=== PATIENT | female | born 1945 | race Caucasian/White ===

== ENCOUNTER 2020-03-08 12:32 | Inpatient (IN) ==
[2020-03-08] MEDS ORDERED: 0.9 % Sodium Chloride 1,000 ML IVC ONE (12:46)
[2020-03-08] MEDS ORDERED: DilTIAZem 50 MG in 0.9 % Sodium Chloride 40 ML IVC SCH (13:00)
[2020-03-08 13:17] LABS: Basophils % 0.1 %; Eosinophils % 0.1 %; Hematocrit 43.5 % (35.3-44.9); Immature Granulocytes % 0.8 % (0-4); Lymphocytes # 0.9 K/mcL (0.6-4.6); Lymphocytes % 5.2 %; Mean Corpuscular HGB Conc 29.9 g/dL (31.6-35.5); Mean Corpuscular Hemoglobin 27.3 pg (28.0-33.3); Mean Corpuscular Volume 91.4 fL (83.0-100.0); Mean Platelet Volume 11.2 fL (9.4-12.4); Monocytes # 1.3 K/mcL (0.0-1.3); Neutrophils # 15.8 K/mcL (1.6-8.9); Nucleated Red Blood Cells 0.2 /100 WBC (0); Platelet Count 336 K/mcL (140-400); Red Blood Count 4.76 M/mcL (3.82-4.97); Red Cell Distribution Width 17.2 % (11.5-14.5); Segmented Neutrophils % 86.8 %; White Blood Count 18.2 K/mcL (4.3-11.1)
[2020-03-08 13:20] LABS: VBG HCO3 31 mEq/L (21-27); VBG PCO2 62 mmHg (41-51); VBG PH 7.31 pH Units (7.32-7.42); VBG PO2 37 mmHg (25-50)
[2020-03-08 13:24] LABS: Activated Partial Thrombo Time 42.2 Seconds (26.0-36.0)
[2020-03-08] MEDS ORDERED: Amiodarone Premix 360 MG/200 ML BAG IVC ONE (13:25)
[2020-03-08] MEDS ORDERED: Amiodarone Premix 150 MG/100 ML BAG IVPB ONE (13:25)
[2020-03-08] MEDS ORDERED: 0.9 % Sodium Chloride 500 ML IVC ONE ×2 (13:30→15:33)
[2020-03-08 13:34] LABS: INR 7.6; Prothrombin Time 82.6 Seconds (9.4-12.1)
[2020-03-08] MEDS ORDERED: Piperacillin/Tazobactam 3.375 GM in 0.9 % Sodium Chloride Mini Bag 100 ML IVPB ONE (13:38)
[2020-03-08 13:43] LABS: Albumin 3.6 g/dL (3.5-5.7); Bilirubin,Direct 1.4 mg/dL (0.0-0.2); Bilirubin,Total 2.4 mg/dL (0.3-1.0); Calcium 9.1 mg/dL (8.6-10.3); Globulin 3.5 g/dL (2.4-3.5); Magnesium 3.3 mg/dL (1.6-2.6); Potassium 6.8 mEq/L (3.5-5.1); Total Protein 7.1 g/dL (6.4-8.9); Troponin I 0.06 ng/mL (< 0.04)
[2020-03-08] MEDS ORDERED: Albuterol 2.5 MG/3 ML NEBULIZER IH ONE (13:44)
[2020-03-08] MEDS ORDERED: Insulin Regular, Human 100 UNIT/ML SQ ONE (13:44)
[2020-03-08] MEDS ORDERED: *HR* Dextrose 50 % in Water (Vial) 50 ML VIAL IVP ONE (13:44)
[2020-03-08] MEDS ORDERED: Aspirin 81 MG TAB.CHEW PO ONE (13:45)
[2020-03-08] MEDS ORDERED: Vancomycin 1,500 MG/265 ML IV.SOLN IVPB ONE (13:45)
[2020-03-08] MEDS: Calcium Gluconate 1gm/50mL 1 GM/50 ML BAG IVPB SCH ×2 (14:16→15:46)
[2020-03-08 14:59] LABS: Adenovirus Not Detected (Not Detect); Bordetella Pertussis Not Detected (Not Detect); Chlamydophila pneumoniae Not Detected (Not Detect); Coronavirus 229E Not Detected (Not Detect); Coronavirus HKU1 Not Detected (Not Detect); Coronavirus NL63 Not Detected (Not Detect); Coronavirus OC43 Not Detected (Not Detect); Human Metapneumovirus Not Detected (Not Detect); Human Rhinovirus/Enterovirus Not Detected (Not Detect); Influenza A Subtype 2009 H1 Not Detected (Not Detect); Influenza B Not Detected (Not Detect); Mycoplasma pneumoniae Not Detected (Not Detect); Parainfluenza Virus 1 Not Detected (Not Detect); Parainfluenza Virus 2 Not Detected (Not Detect); Parainfluenza Virus 3 Not Detected (Not Detect); Parainfluenza Virus 4 Not Detected (Not Detect); Respiratory Syncytial Virus Not Detected (Not Detect); SARS-CoV-2 Not Detected (Not Detect)
[2020-03-08 15:10] LABS: Bacteria,Urine Few per hpf (None-Few); Bilirubin,Urine Small (Negative); Blood,Urine Negative (Negative); Clarity,Urine Turbid (Clear); Color,Urine Yellow (Yellow); Glucose,Urine (UA) Normal (Normal); Hyaline Casts,Urine Many per lpf (None Seen); Ketones,Urine Negative (Negative); Leukocyte Esterase,Urine Negative (Negative); Mucus,Urine Few per lpf (None-Few); Nitrite,Urine Negative (Negative); Protein,Urine 30 mg/dL (Neg-Trace); RBC,Urine 0-3 per hpf (0-3); Specific Gravity,Urine 1.022 (1.010-1.025); Squamous Epithelial Cell,Urine Moderate per hpf (None-Few)
[2020-03-08] MEDS ORDERED: Hydrocortisone Sodium Succ 100 MG/2 ML VIAL IVP ONE (16:08)
[2020-03-08] MEDS ORDERED: Naloxone 0.4 MG/ML INJ IVP PRN (16:55)
[2020-03-08] MEDS ORDERED: Acetaminophen 325 MG TABLET PO PRN (16:55)
[2020-03-08] MEDS ORDERED: Vancomycin (wt based) 1,000 MG VIAL IVPB SCH (17:00)
[2020-03-08] MEDS ORDERED: Albuterol 2.5 MG/3 ML NEBULIZER IH PRN (17:04)
[2020-03-08] MEDS ORDERED: Ondansetron 4 MG/2 ML VIAL ONE (17:05)
[2020-03-08] MEDS ORDERED: Dextrose Gel 15 GM/37.5 ML TUBE PO PRN ×2 (17:05)
[2020-03-08] MEDS ORDERED: *HR* Dextrose 50 % in Water (Vial) 50 ML VIAL IVP PRN (17:05)
[2020-03-08] MEDS ORDERED: D5% in Water 1,000 ML IVC PRN (17:05)
[2020-03-08] MEDS: Albumin Human 5% 12.5 GM/250 ML IV.SOLN IVC SCH ×2 (17:19→19:43)
[2020-03-08] MEDS: Phenylephrine 10 MG in 0.9 % Sodium Chloride 250 ML IVC SCH ×2 (17:23→19:04)
[2020-03-08] MEDS ORDERED: Ondansetron 4 MG/2 ML VIAL IVP ONE (17:27)
[2020-03-08] MEDS ORDERED: levoFLOXacin 750 MG/150 ML 750 MG/150 ML BAG IVPB SCH (18:00)
[2020-03-08 18:35] LABS: INR 5.5; Prothrombin Time 60.9 Seconds (9.4-12.1)
[2020-03-08 18:45] LABS: Calcium 8.3 mg/dL (8.6-10.3); Potassium 6.3 mEq/L (3.5-5.1)
[2020-03-08 18:48] LABS: Troponin I 0.05 ng/mL (< 0.04)
[2020-03-08] MEDS ORDERED: *HR* Promethazine 25 MG/ML VIAL IM ONE (19:43)
[2020-03-08] MEDS: Insulin LISPRO 300 UNITS/3 ML VIAL SQ SCH ×2 (19:53→23:45)
[2020-03-08] MEDS: Amiodarone Premix 360 MG/200 ML BAG IVC SCH (19:58)
[2020-03-08] MEDS ORDERED: Sodium Bicarbonate 150 MEQ in D5% in Water 1,000 ML IVC SCH (20:00)
[2020-03-08] MEDS ORDERED: 0.9 % Sodium Chloride 250 ML ONE (20:03)
[2020-03-08] MEDS: Ipratropium/Albuterol Neb 3 ML IH SCH ×2 (20:03→20:05)
[2020-03-08] MEDS: Phenylephrine 50 MG in 0.9 % Sodium Chloride 250 ML IVC SCH (20:45)
[2020-03-08] MEDS: Levalbuterol Neb 1.25 MG/3 ML IH SCH (21:48)
[2020-03-08 23:23] LABS: Magnesium 2.8 mg/dL (1.6-2.6); Potassium 5.2 mEq/L (3.5-5.1)
[2020-03-08] MEDS: Piperacillin/Tazobactam 3.375 GM in 0.9 % Sodium Chloride Mini Bag 100 ML IVPB SCH (23:59)
[2020-03-09] MEDS: Calcium Gluconate 1gm/50mL 1 GM/50 ML BAG IVPB PRN ×4 (00:03→19:24)
[2020-03-09 02:10] LABS: Calcium 8.4 mg/dL (8.6-10.3)
[2020-03-09] MEDS: Insulin LISPRO 300 UNITS/3 ML VIAL SQ SCH ×6 (03:59→23:15)
[2020-03-09] MEDS: Levalbuterol Neb 1.25 MG/3 ML IH SCH ×4 (04:06→21:25)
[2020-03-09 04:12] LABS: VBG Ionized Calcium 1.01 mmol/L (1.15-1.35)
[2020-03-09 04:20] LABS: Basophils % 0.1 %; Hematocrit 37.9 % (35.3-44.9); Hemoglobin 11.1 g/dL (11.5-15.4); INR 2.1; Immature Granulocytes % 0.7 % (0-4); Lymphocytes # 0.6 K/mcL (0.6-4.6); Lymphocytes % 4.5 %; Mean Corpuscular HGB Conc 29.3 g/dL (31.6-35.5); Mean Corpuscular Hemoglobin 27.1 pg (28.0-33.3); Mean Corpuscular Volume 92.4 fL (83.0-100.0); Mean Platelet Volume 11.3 fL (9.4-12.4); Monocytes # 1.1 K/mcL (0.0-1.3); Monocytes % 7.8 %; Neutrophils # 11.7 K/mcL (1.6-8.9); Platelet Count 282 K/mcL (140-400); Prothrombin Time 24.3 Seconds (9.4-12.1); Red Cell Distribution Width 17.1 % (11.5-14.5); Segmented Neutrophils % 86.9 %; White Blood Count 13.5 K/mcL (4.3-11.1)
[2020-03-09 04:29] LABS: Albumin 3.3 g/dL (3.5-5.7); Albumin/Globulin Ratio 1.3 (1.1-2.2); Bilirubin,Direct 1.4 mg/dL (0.0-0.2); Bilirubin,Indirect 0.7 mg/dL (0.0-1.0); Bilirubin,Total 2.1 mg/dL (0.3-1.0); Calcium 8.3 mg/dL (8.6-10.3); Globulin 2.6 g/dL (2.4-3.5); Magnesium 2.7 mg/dL (1.6-2.6); Phosphorous 4.4 mg/dL (2.7-4.5); Potassium 4.9 mEq/L (3.5-5.1); Total Protein 5.9 g/dL (6.4-8.9)
[2020-03-09 04:39] LABS: Anisocytosis 1+ (Not Present); Hypochromasia Present (Not Present); Platelet Estimate Normal (Normal); Poikilocytosis 1+ (Not Present); Target Cells 1+ (Not Present)
[2020-03-09] MEDS ORDERED: Insulin LISPRO 300 UNITS/3 ML VIAL SQ SCH (05:37)
[2020-03-09] MEDS ORDERED: 0.9 % Sodium Chloride 1,000 ML IVC SCH (05:45)
[2020-03-09] MEDS: Phenylephrine 10 MG in 0.9 % Sodium Chloride 250 ML IVC SCH (05:46)
[2020-03-09] MEDS: Phenylephrine 50 MG in 0.9 % Sodium Chloride 250 ML IVC SCH (08:18)
[2020-03-09] MEDS: Amiodarone Premix 360 MG/200 ML BAG IVC SCH ×2 (08:19→21:23)
[2020-03-09] MEDS: Piperacillin/Tazobactam 3.375 GM in 0.9 % Sodium Chloride Mini Bag 100 ML IVPB SCH ×3 (08:59→23:00)
[2020-03-09] MEDS ORDERED: Perflutren Lipid Microsphere 1.3 ML in 0.9 % Sodium Chloride 8.7 ML IVP PRN (09:09)
[2020-03-09 09:16] LABS: Calcium 8.6 mg/dL (8.6-10.3); Potassium 4.7 mEq/L (3.5-5.1)
[2020-03-09 10:03] LABS: VBG Ionized Calcium 0.92 mmol/L (1.15-1.35)
[2020-03-09 13:11] LABS: Calcium 8.6 mg/dL (8.6-10.3); Potassium 4.8 mEq/L (3.5-5.1)
[2020-03-09 18:31] LABS: VBG Ionized Calcium 1.09 mmol/L (1.15-1.35)
[2020-03-09] MEDS: Prochlorperazine 10 MG/2 ML VIAL IVP PRN ×2 (19:47→22:55)
[2020-03-09] MEDS ORDERED: Albumin 25% 25gram/100mL 25 GM/100 ML IV.SOLN IVPB ONE (20:03)
[2020-03-09] MEDS ORDERED: Furosemide 40 MG/4 ML VIAL IVP ONE (20:04)
[2020-03-09] MEDS: Pantoprazole 40 MG VIAL IVP SCH (22:06)
[2020-03-10] MEDS: Prochlorperazine 10 MG/2 ML VIAL IVP PRN ×4 (02:01→21:34)
[2020-03-10] MEDS: Levalbuterol Neb 1.25 MG/3 ML IH SCH ×4 (03:44→21:32)
[2020-03-10 04:05] LABS: Mean Corpuscular Volume 92.4 fL (83.0-100.0)
[2020-03-10] MEDS: Insulin LISPRO 300 UNITS/3 ML VIAL SQ SCH ×6 (04:05→23:29)
[2020-03-10 04:07] LABS: Basophils % 0.1 %; Eosinophils % 0.4 %; Hematocrit 36.3 % (35.3-44.9); Hemoglobin 10.7 g/dL (11.5-15.4); Immature Granulocytes % 0.5 % (0-4); Lymphocytes # 0.9 K/mcL (0.6-4.6); Lymphocytes % 8.6 %; Mean Corpuscular HGB Conc 29.5 g/dL (31.6-35.5); Mean Corpuscular Hemoglobin 27.2 pg (28.0-33.3); Mean Platelet Volume 10.8 fL (9.4-12.4); Monocytes # 0.7 K/mcL (0.0-1.3); Monocytes % 6.3 %; Platelet Count 191 K/mcL (140-400); Red Blood Count 3.93 M/mcL (3.82-4.97); Red Cell Distribution Width 16.6 % (11.5-14.5); Segmented Neutrophils % 84.1 %; White Blood Count 10.5 K/mcL (4.3-11.1)
[2020-03-10 04:13] LABS: VBG Ionized Calcium 1.05 mmol/L (1.15-1.35)
[2020-03-10 04:16] LABS: Neutrophils # 8.8 K/mcL (1.6-8.9)
[2020-03-10 04:23] LABS: Magnesium 2.3 mg/dL (1.6-2.6); Phosphorous 3.7 mg/dL (2.7-4.5)
[2020-03-10 04:24] LABS: Calcium 8.5 mg/dL (8.6-10.3); Potassium 3.7 mEq/L (3.5-5.1)
[2020-03-10] MEDS: Calcium Gluconate 1gm/50mL 1 GM/50 ML BAG IVPB PRN ×2 (05:38→05:50)
[2020-03-10 05:39] LABS: Hypochromasia Present (Not Present); Platelet Estimate Normal (Normal)
[2020-03-10] MEDS: Piperacillin/Tazobactam 3.375 GM in 0.9 % Sodium Chloride Mini Bag 100 ML IVPB SCH ×3 (07:32→23:28)
[2020-03-10] MEDS: Pantoprazole 40 MG VIAL IVP SCH (07:33)
[2020-03-10 09:26] LABS: INR 1.5; Prothrombin Time 17.6 Seconds (9.4-12.1)
[2020-03-10] MEDS: Amiodarone Premix 360 MG/200 ML BAG IVC SCH ×2 (09:37→21:36)
[2020-03-10] MEDS ORDERED: *HR* Heparin 5,000 UNIT/ML VIAL IVP ONE (11:15)
[2020-03-10] MEDS ORDERED: *HR* Heparin 5,000 UNIT/ML VIAL IVP PRN ×2 (11:15)
[2020-03-10] MEDS: Heparin 25,000UNIT/250ML 1/2NS 25,000 UNIT/250 ML IV.SOLN IVC SCH (12:27)
[2020-03-10] MEDS ORDERED: Nitroglycerin 0.4 MG TAB.SUBL SL PRN (15:54)
[2020-03-10] MEDS: Doxycycline 100 MG in 0.9 % Sodium Chloride Mini Bag 100 ML IVPB SCH (17:06)
[2020-03-10] MEDS: Phenylephrine 50 MG in 0.9 % Sodium Chloride 250 ML IVC SCH (20:52)
[2020-03-11] MEDS: Insulin LISPRO 300 UNITS/3 ML VIAL SQ SCH ×5 (03:24→21:10)
[2020-03-11] MEDS: Levalbuterol Neb 1.25 MG/3 ML IH SCH ×4 (03:39→21:53)
[2020-03-11 03:40] LABS: VBG Ionized Calcium 1.05 mmol/L (1.15-1.35)
[2020-03-11 03:45] LABS: Basophils % 0.2 %; Eosinophils # 0.2 K/mcL (0.0-0.6); Eosinophils % 1.4 %; Hematocrit 37.3 % (35.3-44.9); Hemoglobin 10.8 g/dL (11.5-15.4); Immature Granulocytes % 0.5 % (0-4); Mean Corpuscular Hemoglobin 26.3 pg (28.0-33.3); Monocytes # 0.6 K/mcL (0.0-1.3); Monocytes % 5.6 %; Neutrophils # 9.3 K/mcL (1.6-8.9); Nucleated Red Blood Cells 0.2 /100 WBC (0); Platelet Count 206 K/mcL (140-400); Red Cell Distribution Width 16.6 % (11.5-14.5); Segmented Neutrophils % 83.3 %; White Blood Count 11.1 K/mcL (4.3-11.1)
[2020-03-11 04:04] LABS: Calcium 8.4 mg/dL (8.6-10.3); Phosphorous 2.5 mg/dL (2.7-4.5); Potassium 4.1 mEq/L (3.5-5.1)
[2020-03-11] MEDS: Calcium Gluconate 1gm/50mL 1 GM/50 ML BAG IVPB PRN (05:00)
[2020-03-11] MEDS: Doxycycline 100 MG in 0.9 % Sodium Chloride Mini Bag 100 ML IVPB SCH ×2 (05:00→19:05)
[2020-03-11] MEDS: Heparin 25,000UNIT/250ML 1/2NS 25,000 UNIT/250 ML IV.SOLN IVC SCH ×2 (05:48→15:07)
[2020-03-11] MEDS ORDERED: carvediloL 6.25 MG TABLET PO SCH (08:00)
[2020-03-11] MEDS: Pantoprazole 40 MG VIAL IVP SCH (08:41)
[2020-03-11] MEDS: Piperacillin/Tazobactam 3.375 GM in 0.9 % Sodium Chloride Mini Bag 100 ML IVPB SCH (08:41)
[2020-03-11] MEDS ORDERED: Magnesium Oxide 400 MG TABLET PO SCH (09:00)
[2020-03-11] MEDS ORDERED: Sennosides/Docusate Sodium TABLET PO SCH (09:00)
[2020-03-11] MEDS ORDERED: *HR* Amiodarone 200 MG TABLET PO SCH (10:30)
[2020-03-11] MEDS ORDERED: Naloxone 0.4 MG/ML INJ IVP PRN (14:10)
[2020-03-11] MEDS ORDERED: *HR* Dextrose 50 % in Water (Vial) 50 ML VIAL IVP PRN (14:10)
[2020-03-11] MEDS ORDERED: D5% in Water 1,000 ML IVC PRN (14:10)
[2020-03-11] MEDS ORDERED: *HR* Heparin 5,000 UNIT/ML VIAL IVP PRN (14:10)
[2020-03-11] MEDS ORDERED: Albuterol 2.5 MG/3 ML NEBULIZER IH PRN (14:10)
[2020-03-11] MEDS ORDERED: Nitroglycerin 0.4 MG TAB.SUBL SL PRN (14:10)
[2020-03-11] MEDS ORDERED: Calcium Gluconate 1gm/50mL 1 GM/50 ML BAG IVPB PRN (14:10)
[2020-03-11] MEDS ORDERED: Dextrose Gel 15 GM/37.5 ML TUBE PO PRN ×2 (14:10)
[2020-03-11] MEDS ORDERED: cefTRIAXone 1,000 MG in Water for inj. (sterile) 10 ML IVP SCH (18:00)
[2020-03-11] MEDS: carvediloL 6.25 MG TABLET PO SCH (19:05)
[2020-03-11] MEDS: cefTRIAXone 1,000 MG in Water for inj. (sterile) 10 ML IVP SCH (19:07)
[2020-03-11] MEDS: Prochlorperazine 10 MG/2 ML VIAL IVP PRN (20:29)
[2020-03-11] MEDS: *HR* Amiodarone 200 MG TABLET PO SCH (20:32)
[2020-03-11 23:13] LABS: Hematocrit 37.6 % (35.3-44.9)
[2020-03-12] MEDS: Insulin LISPRO 300 UNITS/3 ML VIAL SQ SCH ×6 (01:52→21:06)
[2020-03-12] MEDS: Acetaminophen 325 MG TABLET PO PRN ×3 (01:58→21:00)
[2020-03-12] MEDS: Doxycycline 100 MG in 0.9 % Sodium Chloride Mini Bag 100 ML IVPB SCH ×2 (02:02→12:56)
[2020-03-12] MEDS: *HR* Heparin 5,000 UNIT/ML VIAL IVP PRN ×2 (03:11→09:57)
[2020-03-12] MEDS: Heparin 25,000UNIT/250ML 1/2NS 25,000 UNIT/250 ML IV.SOLN IVC SCH (03:16)
[2020-03-12] MEDS: Levalbuterol Neb 1.25 MG/3 ML IH SCH ×4 (03:50→23:20)
[2020-03-12] MEDS: carvediloL 6.25 MG TABLET PO SCH (08:16)
[2020-03-12] MEDS: Magnesium Oxide 400 MG TABLET PO SCH (08:20)
[2020-03-12] MEDS: *HR* Amiodarone 200 MG TABLET PO SCH (08:21)
[2020-03-12] MEDS: Pantoprazole 40 MG VIAL IVP SCH (08:21)
[2020-03-12] MEDS: Sennosides/Docusate Sodium TABLET PO SCH (08:21)
[2020-03-12] MEDS: cefTRIAXone 1,000 MG in Water for inj. (sterile) 10 ML IVP SCH (16:42)
[2020-03-12] MEDS: Prochlorperazine 10 MG/2 ML VIAL IVP PRN (21:02)
[2020-03-13] MEDS: Insulin LISPRO 300 UNITS/3 ML VIAL SQ SCH ×6 (00:03→20:50)
[2020-03-13] MEDS: Doxycycline 100 MG in 0.9 % Sodium Chloride Mini Bag 100 ML IVPB SCH ×3 (00:13→12:22)
[2020-03-13] MEDS: Heparin 25,000UNIT/250ML 1/2NS 25,000 UNIT/250 ML IV.SOLN IVC SCH (01:14)
[2020-03-13 03:02] LABS: Basophils # 0.1 K/mcL (0.0-0.2); Basophils % 0.5 %; Eosinophils # 0.5 K/mcL (0.0-0.6); Eosinophils % 4.3 %; Hematocrit 37.4 % (35.3-44.9); Immature Granulocytes % 0.5 % (0-4); Lymphocytes # 1.1 K/mcL (0.6-4.6); Lymphocytes % 10.1 %; Mean Corpuscular HGB Conc 29.4 g/dL (31.6-35.5); Mean Corpuscular Hemoglobin 25.9 pg (28.0-33.3); Mean Platelet Volume 10.8 fL (9.4-12.4); Monocytes # 0.8 K/mcL (0.0-1.3); Monocytes % 7.9 %; Nucleated Red Blood Cells 0.3 /100 WBC (0); Platelet Count 185 K/mcL (140-400); Red Blood Count 4.25 M/mcL (3.82-4.97); Red Cell Distribution Width 16.8 % (11.5-14.5); Segmented Neutrophils % 76.7 %; White Blood Count 10.4 K/mcL (4.3-11.1)
[2020-03-13 03:20] LABS: BUN/Creatinine Ratio 51 (6-26); Blood Urea Nitrogen 50 mg/dL (8-23); Calcium 8.7 mg/dL (8.6-10.3); Carbon Dioxide 31 mEq/L (23-29); Chloride 93 mEq/L (98-107); Glucose 154 mg/dL (70-105); Osmolality,Calculated 290 (280-300); Potassium 4.2 mEq/L (3.5-5.1); Sodium 132 mEq/L (136-145); eGFR For African Americans > 60 (> 60); eGFR For Non-African Americans 55 (> 60)
[2020-03-13] MEDS: Levalbuterol Neb 1.25 MG/3 ML IH SCH ×4 (03:25→22:05)
[2020-03-13] MEDS: Pantoprazole 40 MG VIAL IVP SCH (08:09)
[2020-03-13] MEDS: Sennosides/Docusate Sodium TABLET PO SCH (08:09)
[2020-03-13] MEDS: Magnesium Oxide 400 MG TABLET PO SCH (08:09)
[2020-03-13] MEDS ORDERED: Furosemide 40 MG TABLET PO SCH (16:14)
[2020-03-13] MEDS: cefTRIAXone 1,000 MG in Water for inj. (sterile) 10 ML IVP SCH (18:40)
[2020-03-14] MEDS: Doxycycline 100 MG in 0.9 % Sodium Chloride Mini Bag 100 ML IVPB SCH ×2 (00:09→13:59)
[2020-03-14] MEDS: Levalbuterol Neb 1.25 MG/3 ML IH SCH ×4 (04:02→22:33)
[2020-03-14 06:22] LABS: Hemoglobin 11.2 g/dL (11.5-15.4); Immature Granulocytes % 0.4 % (0-4); Red Cell Distribution Width 17.2 % (11.5-14.5)
[2020-03-14 06:24] LABS: Basophils % 0.3 %; Eosinophils # 0.2 K/mcL (0.0-0.6); Eosinophils % 1.3 %; Hematocrit 38.3 % (35.3-44.9); Lymphocytes # 1.5 K/mcL (0.6-4.6); Mean Corpuscular HGB Conc 29.2 g/dL (31.6-35.5); Mean Corpuscular Hemoglobin 25.9 pg (28.0-33.3); Mean Corpuscular Volume 88.7 fL (83.0-100.0); Mean Platelet Volume 10.9 fL (9.4-12.4); Monocytes # 0.9 K/mcL (0.0-1.3); Monocytes % 7.8 %; Neutrophils # 8.8 K/mcL (1.6-8.9); Platelet Count 184 K/mcL (140-400); Red Blood Count 4.32 M/mcL (3.82-4.97); Segmented Neutrophils % 77.2 %; White Blood Count 11.4 K/mcL (4.3-11.1)
[2020-03-14 06:41] LABS: BUN/Creatinine Ratio 47 (6-26); Blood Urea Nitrogen 41 mg/dL (8-23); Calcium 9.1 mg/dL (8.6-10.3); Carbon Dioxide 32 mEq/L (23-29); Chloride 94 mEq/L (98-107); Glucose 180 mg/dL (70-105); Osmolality,Calculated 291 (280-300); Potassium 4.4 mEq/L (3.5-5.1); Sodium 133 mEq/L (136-145); eGFR For African Americans > 60 (> 60); eGFR For Non-African Americans > 60 (> 60)
[2020-03-14 07:04] LABS: Hypochromasia Present (Not Present)
[2020-03-14 07:05] LABS: Anisocytosis 1+ (Not Present); Platelet Estimate Normal (Normal)
[2020-03-14] MEDS: Insulin LISPRO 300 UNITS/3 ML VIAL SQ SCH ×4 (08:38→21:39)
[2020-03-14] MEDS: Pantoprazole 40 MG VIAL IVP SCH (08:38)
[2020-03-14] MEDS: Metoprolol XL (24 HR) Succ 25 MG TAB.ER.24H PO SCH ×2 (08:39→20:04)
[2020-03-14] MEDS: Magnesium Oxide 400 MG TABLET PO SCH (08:39)
[2020-03-14] MEDS: Sennosides/Docusate Sodium TABLET PO SCH (08:39)
[2020-03-14] MEDS: Furosemide 40 MG/4 ML VIAL IVP SCH ×2 (08:39→20:04)
[2020-03-14] MEDS: Prochlorperazine 10 MG/2 ML VIAL IVP PRN ×2 (14:03→21:39)
[2020-03-14] MEDS: Heparin 25,000UNIT/250ML 1/2NS 25,000 UNIT/250 ML IV.SOLN IVC SCH ×2 (14:31→14:41)
[2020-03-14] MEDS ORDERED: Bisacodyl 10 MG RECTAL SUPPOSITORY RC ONE (14:37)
[2020-03-14] MEDS: Cefdinir 300 MG CAPSULE PO SCH (20:04)
[2020-03-14] MEDS: Doxycycline 100 MG CAPSULE PO SCH (20:04)
[2020-03-15 02:11] LABS: Basophils % 0.1 %; Eosinophils # 0.1 K/mcL (0.0-0.6); Eosinophils % 0.6 %; Hematocrit 37.6 % (35.3-44.9); Hemoglobin 11.1 g/dL (11.5-15.4); Immature Granulocytes % 0.5 % (0-4); Lymphocytes # 1.2 K/mcL (0.6-4.6); Lymphocytes % 9.3 %; Mean Corpuscular HGB Conc 29.5 g/dL (31.6-35.5); Mean Corpuscular Hemoglobin 26.3 pg (28.0-33.3); Mean Corpuscular Volume 89.1 fL (83.0-100.0); Monocytes % 7.5 %; Platelet Count 184 K/mcL (140-400); Red Blood Count 4.22 M/mcL (3.82-4.97); Red Cell Distribution Width 17.5 % (11.5-14.5); White Blood Count 13.4 K/mcL (4.3-11.1)
[2020-03-15 02:30] LABS: BUN/Creatinine Ratio 54 (6-26); Blood Urea Nitrogen 42 mg/dL (8-23); Calcium 8.8 mg/dL (8.6-10.3); Carbon Dioxide 31 mEq/L (23-29); Chloride 95 mEq/L (98-107); Glucose 187 mg/dL (70-105); Osmolality,Calculated 293 (280-300); Potassium 4.1 mEq/L (3.5-5.1); Sodium 134 mEq/L (136-145); eGFR For African Americans > 60 (> 60); eGFR For Non-African Americans > 60 (> 60)
[2020-03-15] MEDS: Prochlorperazine 10 MG/2 ML VIAL IVP PRN ×2 (03:26→19:55)
[2020-03-15] MEDS: Levalbuterol Neb 1.25 MG/3 ML IH SCH ×4 (03:29→22:01)
[2020-03-15] MEDS: Heparin 25,000UNIT/250ML 1/2NS 25,000 UNIT/250 ML IV.SOLN IVC SCH (05:38)
[2020-03-15] MEDS: Pantoprazole 40 MG VIAL IVP SCH (07:34)
[2020-03-15] MEDS: Insulin LISPRO 300 UNITS/3 ML VIAL SQ SCH ×4 (07:34→20:37)
[2020-03-15] MEDS: Sennosides/Docusate Sodium TABLET PO SCH (07:34)
[2020-03-15] MEDS: Furosemide 40 MG/4 ML VIAL IVP SCH ×2 (07:34→19:56)
[2020-03-15] MEDS: Metoprolol XL (24 HR) Succ 25 MG TAB.ER.24H PO SCH ×2 (07:34→19:56)
[2020-03-15] MEDS: Magnesium Oxide 400 MG TABLET PO SCH (07:35)
[2020-03-15] MEDS: Doxycycline 100 MG CAPSULE PO SCH ×2 (07:35→19:55)
[2020-03-15] MEDS: Cefdinir 300 MG CAPSULE PO SCH ×2 (07:35→19:55)
[2020-03-15] MEDS: Aspirin Enteric Coated 81 MG Tablet PO SCH (11:25)
[2020-03-15] MEDS ORDERED: Ondansetron 4 MG/2 ML VIAL IVP PRN (22:40)
[2020-03-15] MEDS ORDERED: Bisacodyl 10 MG RECTAL SUPPOSITORY RC PRN (23:07)
[2020-03-16] MEDS: Acetaminophen 325 MG TABLET PO PRN (00:21)
[2020-03-16 03:01] LABS: INR 1.3; Immature Granulocytes % 0.7 % (0-4); Prothrombin Time 14.9 Seconds (9.4-12.1); Red Cell Distribution Width 17.4 % (11.5-14.5)
[2020-03-16 03:03] LABS: Basophils % 0.3 %; Eosinophils # 0.1 K/mcL (0.0-0.6); Eosinophils % 0.5 %; Hemoglobin 11.4 g/dL (11.5-15.4); Lymphocytes # 1.2 K/mcL (0.6-4.6); Lymphocytes % 10.4 %; Mean Corpuscular HGB Conc 29.2 g/dL (31.6-35.5); Mean Corpuscular Hemoglobin 26.4 pg (28.0-33.3); Mean Corpuscular Volume 90.3 fL (83.0-100.0); Mean Platelet Volume 10.3 fL (9.4-12.4); Monocytes # 0.7 K/mcL (0.0-1.3); Monocytes % 6.3 %; Platelet Count 198 K/mcL (140-400); Red Blood Count 4.32 M/mcL (3.82-4.97); Segmented Neutrophils % 81.8 %; White Blood Count 11.7 K/mcL (4.3-11.1)
[2020-03-16 03:08] LABS: Neutrophils # 9.6 K/mcL (1.6-8.9)
[2020-03-16 03:17] LABS: BUN/Creatinine Ratio 51 (6-26); Blood Urea Nitrogen 39 mg/dL (8-23); Calcium 9.1 mg/dL (8.6-10.3); Carbon Dioxide 35 mEq/L (23-29); Chloride 94 mEq/L (98-107); Glucose 152 mg/dL (70-105); Osmolality,Calculated 294 (280-300); Sodium 136 mEq/L (136-145); eGFR For African Americans > 60 (> 60); eGFR For Non-African Americans > 60 (> 60)
[2020-03-16 03:19] LABS: Albumin 3.3 g/dL (3.5-5.7); Albumin/Globulin Ratio 1.1 (1.1-2.2); Bilirubin,Direct 0.7 mg/dL (0.0-0.2); Bilirubin,Indirect 0.9 mg/dL (0.0-1.0); Bilirubin,Total 1.6 mg/dL (0.3-1.0); Globulin 2.9 g/dL (2.4-3.5); Total Protein 6.2 g/dL (6.4-8.9)
[2020-03-16] MEDS: Levalbuterol Neb 1.25 MG/3 ML IH SCH ×4 (04:01→22:09)
[2020-03-16] MEDS: Heparin 25,000UNIT/250ML 1/2NS 25,000 UNIT/250 ML IV.SOLN IVC SCH (06:08)
[2020-03-16] MEDS: Insulin LISPRO 300 UNITS/3 ML VIAL SQ SCH ×5 (07:30→23:41)
[2020-03-16] MEDS: Aspirin Enteric Coated 81 MG Tablet PO SCH (07:37)
[2020-03-16] MEDS: Sennosides/Docusate Sodium TABLET PO SCH (07:37)
[2020-03-16] MEDS: Metoprolol XL (24 HR) Succ 25 MG TAB.ER.24H PO SCH ×2 (07:37→20:44)
[2020-03-16] MEDS: Doxycycline 100 MG CAPSULE PO SCH ×2 (07:37→20:44)
[2020-03-16] MEDS: Magnesium Oxide 400 MG TABLET PO SCH (07:37)
[2020-03-16] MEDS: Cefdinir 300 MG CAPSULE PO SCH ×2 (07:37→20:44)
[2020-03-16] MEDS: Furosemide 40 MG/4 ML VIAL IVP SCH ×3 (07:37→20:44)
[2020-03-16] MEDS: Pantoprazole 40 MG VIAL IVP SCH (07:38)
[2020-03-16] MEDS ORDERED: *HR* Digoxin 0.5 MG/2 ML AMPUL IVP SCH (09:45)
[2020-03-16] MEDS: *HR* Digoxin 0.5 MG/2 ML AMPUL IVP SCH ×3 (16:08→23:40)
[2020-03-16] MEDS ORDERED: *HR* Digoxin 0.5 MG/2 ML AMPUL IVP ONE (21:30)
[2020-03-17 02:44] LABS: Basophils % 0.4 %; Eosinophils # 0.1 K/mcL (0.0-0.6); Eosinophils % 0.7 %; Hematocrit 37.7 % (35.3-44.9); Immature Granulocytes % 0.4 % (0-4); Lymphocytes # 1.1 K/mcL (0.6-4.6); Lymphocytes % 13.1 %; Mean Corpuscular HGB Conc 29.2 g/dL (31.6-35.5); Mean Corpuscular Hemoglobin 26.1 pg (28.0-33.3); Mean Corpuscular Volume 89.3 fL (83.0-100.0); Monocytes # 0.6 K/mcL (0.0-1.3); Monocytes % 7.4 %; Neutrophils # 6.4 K/mcL (1.6-8.9); Platelet Count 174 K/mcL (140-400); Red Blood Count 4.22 M/mcL (3.82-4.97); Red Cell Distribution Width 17.4 % (11.5-14.5); White Blood Count 8.2 K/mcL (4.3-11.1)
[2020-03-17 03:01] LABS: BUN/Creatinine Ratio 49 (6-26); Blood Urea Nitrogen 33 mg/dL (8-23); Calcium 8.9 mg/dL (8.6-10.3); Carbon Dioxide 37 mEq/L (23-29); Chloride 93 mEq/L (98-107); Glucose 182 mg/dL (70-105); Osmolality,Calculated 296 (280-300); Potassium 3.7 mEq/L (3.5-5.1); Sodium 137 mEq/L (136-145); eGFR For African Americans > 60 (> 60); eGFR For Non-African Americans > 60 (> 60)
[2020-03-17] MEDS: Levalbuterol Neb 1.25 MG/3 ML IH SCH ×4 (03:30→21:19)
[2020-03-17] MEDS: Heparin 25,000UNIT/250ML 1/2NS 25,000 UNIT/250 ML IV.SOLN IVC SCH (04:00)
[2020-03-17] MEDS: Cefdinir 300 MG CAPSULE PO SCH (07:36)
[2020-03-17] MEDS: Doxycycline 100 MG CAPSULE PO SCH (07:36)
[2020-03-17] MEDS: Insulin LISPRO 300 UNITS/3 ML VIAL SQ SCH ×4 (07:36→20:23)
[2020-03-17] MEDS: Magnesium Oxide 400 MG TABLET PO SCH (07:36)
[2020-03-17] MEDS: Aspirin Enteric Coated 81 MG Tablet PO SCH (07:37)
[2020-03-17] MEDS: Sennosides/Docusate Sodium TABLET PO SCH (07:37)
[2020-03-17] MEDS: Pantoprazole 40 MG VIAL IVP SCH (07:37)
[2020-03-17] MEDS: Metoprolol XL (24 HR) Succ 25 MG TAB.ER.24H PO SCH ×2 (07:37→19:57)
[2020-03-17] MEDS: Furosemide 40 MG/4 ML VIAL IVP SCH ×3 (07:37→19:56)
[2020-03-17] MEDS: lisinopriL 5 MG TABLET PO SCH (11:55)
[2020-03-17] MEDS: Prochlorperazine 10 MG/2 ML VIAL IVP PRN ×2 (14:57→19:55)
[2020-03-17] MEDS: Spironolactone 25 MG TABLET PO SCH (14:57)
[2020-03-17] MEDS: Acetaminophen 325 MG TABLET PO PRN (22:00)
[2020-03-18 02:43] LABS: Basophils % 0.5 %; Eosinophils # 0.1 K/mcL (0.0-0.6); Eosinophils % 0.9 %; Hematocrit 36.1 % (35.3-44.9); Hemoglobin 10.5 g/dL (11.5-15.4); Immature Granulocytes % 0.5 % (0-4); Lymphocytes % 13.3 %; Mean Corpuscular HGB Conc 29.1 g/dL (31.6-35.5); Mean Corpuscular Hemoglobin 26.4 pg (28.0-33.3); Mean Corpuscular Volume 90.9 fL (83.0-100.0); Monocytes # 0.5 K/mcL (0.0-1.3); Monocytes % 6.6 %; Platelet Count 160 K/mcL (140-400); Red Blood Count 3.97 M/mcL (3.82-4.97); Red Cell Distribution Width 17.2 % (11.5-14.5); Segmented Neutrophils % 78.2 %; White Blood Count 7.7 K/mcL (4.3-11.1)
[2020-03-18 03:00] LABS: BUN/Creatinine Ratio 37 (6-26); Blood Urea Nitrogen 25 mg/dL (8-23); Calcium 8.8 mg/dL (8.6-10.3); Carbon Dioxide 39 mEq/L (23-29); Chloride 94 mEq/L (98-107); Glucose 164 mg/dL (70-105); Osmolality,Calculated 292 (280-300); Potassium 3.8 mEq/L (3.5-5.1); Sodium 137 mEq/L (136-145); eGFR For African Americans > 60 (> 60); eGFR For Non-African Americans > 60 (> 60)
[2020-03-18] MEDS: Levalbuterol Neb 1.25 MG/3 ML IH SCH ×4 (03:09→22:03)
[2020-03-18] MEDS: Heparin 25,000UNIT/250ML 1/2NS 25,000 UNIT/250 ML IV.SOLN IVC SCH ×2 (04:01→22:19)
[2020-03-18] MEDS: Acetaminophen 325 MG TABLET PO PRN ×2 (04:03→17:44)
[2020-03-18] MEDS: Prochlorperazine 10 MG/2 ML VIAL IVP PRN ×3 (04:03→12:34)
[2020-03-18] MEDS: lisinopriL 5 MG TABLET PO SCH (08:04)
[2020-03-18] MEDS: Metoprolol XL (24 HR) Succ 25 MG TAB.ER.24H PO SCH ×2 (08:04→20:45)
[2020-03-18] MEDS: *HR* Digoxin 0.125 MG TABLET PO SCH (08:04)
[2020-03-18] MEDS: Magnesium Oxide 400 MG TABLET PO SCH (08:04)
[2020-03-18] MEDS: Aspirin Enteric Coated 81 MG Tablet PO SCH (08:04)
[2020-03-18] MEDS: Spironolactone 25 MG TABLET PO SCH (08:04)
[2020-03-18] MEDS: Sennosides/Docusate Sodium TABLET PO SCH (08:04)
[2020-03-18] MEDS: Furosemide 40 MG/4 ML VIAL IVP SCH ×3 (08:05→20:45)
[2020-03-18] MEDS: Insulin LISPRO 300 UNITS/3 ML VIAL SQ SCH ×4 (08:06→20:45)
[2020-03-18 15:16] LABS: INR 1.4; Prothrombin Time 15.5 Seconds (9.4-12.1)
[2020-03-18] MEDS ORDERED: Warfarin perPT PO PRN (18:00)
[2020-03-18] MEDS ORDERED: *HR* Warfarin 3 MG TABLET PO ONE (18:00)
[2020-03-19 02:44] LABS: Hematocrit 37.2 % (35.3-44.9); Red Cell Distribution Width 17.2 % (11.5-14.5)
[2020-03-19 02:45] LABS: Hemoglobin 10.6 g/dL (11.5-15.4); Mean Corpuscular HGB Conc 28.5 g/dL (31.6-35.5); Mean Corpuscular Hemoglobin 25.5 pg (28.0-33.3); Mean Corpuscular Volume 89.4 fL (83.0-100.0); Mean Platelet Volume 10.1 fL (9.4-12.4); Platelet Count 161 K/mcL (140-400); Red Blood Count 4.16 M/mcL (3.82-4.97); White Blood Count 8.6 K/mcL (4.3-11.1)
[2020-03-19 02:57] LABS: BUN/Creatinine Ratio 31 (6-26); Blood Urea Nitrogen 20 mg/dL (8-23); Calcium 8.6 mg/dL (8.6-10.3); Carbon Dioxide 41 mEq/L (23-29); Chloride 91 mEq/L (98-107); Glucose 185 mg/dL (70-105); Magnesium 1.5 mg/dL (1.6-2.6); Osmolality,Calculated 291 (280-300); Potassium 3.8 mEq/L (3.5-5.1); Sodium 137 mEq/L (136-145); eGFR For African Americans > 60 (> 60); eGFR For Non-African Americans > 60 (> 60)
[2020-03-19] MEDS: Levalbuterol Neb 1.25 MG/3 ML IH SCH ×4 (03:48→22:01)
[2020-03-19 07:55] LABS: INR 1.3; Prothrombin Time 15.3 Seconds (9.4-12.1)
[2020-03-19] MEDS: lisinopriL 5 MG TABLET PO SCH (08:04)
[2020-03-19] MEDS: Spironolactone 25 MG TABLET PO SCH (08:04)
[2020-03-19] MEDS: Insulin LISPRO 300 UNITS/3 ML VIAL SQ SCH ×3 (08:25→16:51)
[2020-03-19] MEDS: Aspirin Enteric Coated 81 MG Tablet PO SCH (08:25)
[2020-03-19] MEDS: Metoprolol XL (24 HR) Succ 25 MG TAB.ER.24H PO SCH ×2 (08:25→21:48)
[2020-03-19] MEDS: Furosemide 40 MG/4 ML VIAL IVP SCH ×2 (08:25→15:57)
[2020-03-19] MEDS: *HR* Digoxin 0.125 MG TABLET PO SCH (08:25)
[2020-03-19] MEDS: Magnesium Oxide 400 MG TABLET PO SCH (08:25)
[2020-03-19] MEDS: Sennosides/Docusate Sodium TABLET PO SCH (08:25)
[2020-03-19] MEDS: Albumin 25% 25gram/100mL 25 GM/100 ML IV.SOLN IVPB SCH ×2 (13:48→21:49)
[2020-03-19] MEDS ORDERED: *HR* Warfarin 5 MG TABLET PO ONE (18:00)
[2020-03-20] MEDS: Heparin 25,000UNIT/250ML 1/2NS 25,000 UNIT/250 ML IV.SOLN IVC SCH (00:06)
[2020-03-20 03:19] LABS: Hemoglobin 10.5 g/dL (11.5-15.4); Mean Corpuscular HGB Conc 28.4 g/dL (31.6-35.5); Mean Corpuscular Hemoglobin 26.1 pg (28.0-33.3); Mean Platelet Volume 9.7 fL (9.4-12.4); Platelet Count 151 K/mcL (140-400); Red Blood Count 4.02 M/mcL (3.82-4.97); Red Cell Distribution Width 17.2 % (11.5-14.5)
[2020-03-20 03:20] LABS: INR 1.4
[2020-03-20 03:36] LABS: Alanine Aminotransferase 22 Units/L (7-52); Albumin 3.5 g/dL (3.5-5.7); Albumin/Globulin Ratio 1.3 (1.1-2.2); Alkaline Phosphatase 63 Units/L (34-104); Aspartate Amino Transferase 14 Units/L (13-39); BUN/Creatinine Ratio 34 (6-26); Bilirubin,Total 2.6 mg/dL (0.3-1.0); Blood Urea Nitrogen 19 mg/dL (8-23); Calcium 8.7 mg/dL (8.6-10.3); Carbon Dioxide 38 mEq/L (23-29); Chloride 90 mEq/L (98-107); Globulin 2.8 g/dL (2.4-3.5); Glucose 179 mg/dL (70-105); Osmolality,Calculated 291 (280-300); Potassium 3.6 mEq/L (3.5-5.1); Sodium 137 mEq/L (136-145); Total Protein 6.3 g/dL (6.4-8.9); eGFR For African Americans > 60 (> 60); eGFR For Non-African Americans > 60 (> 60)
[2020-03-20] MEDS: Levalbuterol Neb 1.25 MG/3 ML IH SCH ×4 (04:02→22:42)
[2020-03-20] MEDS: Aspirin 81 MG TAB.CHEW PO SCH (09:09)
[2020-03-20] MEDS: Metoprolol XL (24 HR) Succ 25 MG TAB.ER.24H PO SCH ×2 (09:09→20:43)
[2020-03-20] MEDS: Magnesium Oxide 400 MG TABLET PO SCH (09:09)
[2020-03-20] MEDS: Spironolactone 25 MG TABLET PO SCH (09:10)
[2020-03-20] MEDS: lisinopriL 5 MG TABLET PO SCH (09:10)
[2020-03-20] MEDS: *HR* Digoxin 0.125 MG TABLET PO SCH (09:10)
[2020-03-20] MEDS: Sennosides/Docusate Sodium TABLET PO SCH (09:10)
[2020-03-20] MEDS: Furosemide 40 MG/4 ML VIAL IVP SCH ×3 (09:11→20:39)
[2020-03-20] MEDS: Insulin LISPRO 300 UNITS/3 ML VIAL SQ SCH ×5 (09:12→20:46)
[2020-03-20] MEDS: Albumin 25% 25gram/100mL 25 GM/100 ML IV.SOLN IVPB SCH ×3 (09:21→21:06)
[2020-03-20 09:51] LABS: Digoxin 1.1 ng/mL (0.8-2.0)
[2020-03-20] MEDS ORDERED: *HR* Warfarin 5 MG TABLET PO ONE (18:00)
[2020-03-21 02:10] LABS: INR 1.8
[2020-03-21 02:33] LABS: BUN/Creatinine Ratio 29 (6-26); Blood Urea Nitrogen 16 mg/dL (8-23); Calcium 9.2 mg/dL (8.6-10.3); Carbon Dioxide 40 mEq/L (23-29); Chloride 90 mEq/L (98-107); Glucose 160 mg/dL (70-105); Magnesium 1.8 mg/dL (1.6-2.6); Osmolality,Calculated 287 (280-300); Potassium 3.5 mEq/L (3.5-5.1); Sodium 136 mEq/L (136-145); eGFR For African Americans > 60 (> 60); eGFR For Non-African Americans > 60 (> 60)
[2020-03-21] MEDS: Prochlorperazine 10 MG/2 ML VIAL IVP PRN ×3 (03:08→12:02)
[2020-03-21] MEDS: Levalbuterol Neb 1.25 MG/3 ML IH SCH ×4 (03:52→21:59)
[2020-03-21] MEDS: Aspirin 81 MG TAB.CHEW PO SCH (07:31)
[2020-03-21] MEDS: Magnesium Oxide 400 MG TABLET PO SCH (07:32)
[2020-03-21] MEDS: Metoprolol XL (24 HR) Succ 25 MG TAB.ER.24H PO SCH ×2 (07:32→21:32)
[2020-03-21] MEDS: lisinopriL 5 MG TABLET PO SCH (07:32)
[2020-03-21] MEDS: Sennosides/Docusate Sodium TABLET PO SCH (07:32)
[2020-03-21] MEDS: Spironolactone 25 MG TABLET PO SCH (07:32)
[2020-03-21] MEDS: *HR* Digoxin 0.125 MG TABLET PO SCH (07:35)
[2020-03-21] MEDS: Insulin LISPRO 300 UNITS/3 ML VIAL SQ SCH ×4 (07:35→21:37)
[2020-03-21] MEDS: Furosemide 40 MG/4 ML VIAL IVP SCH ×4 (07:46→23:43)
[2020-03-21] MEDS: Albumin 25% 25gram/100mL 25 GM/100 ML IV.SOLN IVPB SCH ×3 (07:47→22:53)
[2020-03-21] MEDS: Acetaminophen 325 MG TABLET PO PRN (12:02)
[2020-03-21] MEDS: *HR* LORazepam 0.5 MG TABLET PO PRN (12:45)
[2020-03-21] MEDS: *HR* Heparin 5,000 UNIT/ML VIAL IVP PRN (15:34)
[2020-03-21] MEDS ORDERED: *HR* Warfarin 5 MG TABLET PO ONE (18:00)
[2020-03-22 00:55] LABS: Hemoglobin 9.9 g/dL (11.5-15.4); Mean Corpuscular HGB Conc 28.3 g/dL (31.6-35.5); Mean Corpuscular Hemoglobin 26.1 pg (28.0-33.3); Mean Corpuscular Volume 92.1 fL (83.0-100.0); Red Blood Count 3.8 M/mcL (3.82-4.97)
[2020-03-22 00:57] LABS: Immature Platelets 6.3 % (1.1-6.1); Mean Platelet Volume 10.4 fL (9.4-12.4); Red Cell Distribution Width 17.8 % (11.5-14.5); White Blood Count 7.7 K/mcL (4.3-11.1)
[2020-03-22 00:59] LABS: Heparin anti-factor XA UFH 0.31 IU/mL (0.30-0.70)
[2020-03-22] MEDS: *HR* LORazepam 0.5 MG TABLET PO PRN ×3 (00:59→17:44)
[2020-03-22 01:00] LABS: INR 2.5
[2020-03-22] MEDS: Heparin 25,000UNIT/250ML 1/2NS 25,000 UNIT/250 ML IV.SOLN IVC SCH (01:18)
[2020-03-22 01:27] LABS: BUN/Creatinine Ratio 32 (6-26); Blood Urea Nitrogen 17 mg/dL (8-23); Calcium 9.4 mg/dL (8.6-10.3); Carbon Dioxide 40 mEq/L (23-29); Chloride 90 mEq/L (98-107); Glucose 177 mg/dL (70-105); Magnesium 1.8 mg/dL (1.6-2.6); Osmolality,Calculated 290 (280-300); Potassium 3.5 mEq/L (3.5-5.1); Sodium 137 mEq/L (136-145); eGFR For African Americans > 60 (> 60); eGFR For Non-African Americans > 60 (> 60)
[2020-03-22] MEDS: Levalbuterol Neb 1.25 MG/3 ML IH SCH ×4 (04:34→21:21)
[2020-03-22] MEDS: Magnesium Oxide 400 MG TABLET PO SCH (07:27)
[2020-03-22] MEDS: Aspirin 81 MG TAB.CHEW PO SCH (07:27)
[2020-03-22] MEDS: Sennosides/Docusate Sodium TABLET PO SCH (07:27)
[2020-03-22] MEDS: Metoprolol XL (24 HR) Succ 25 MG TAB.ER.24H PO SCH ×2 (07:27→19:58)
[2020-03-22] MEDS: Acetaminophen 325 MG TABLET PO PRN (07:27)
[2020-03-22] MEDS: lisinopriL 5 MG TABLET PO SCH (07:27)
[2020-03-22] MEDS: Spironolactone 25 MG TABLET PO SCH (07:27)
[2020-03-22] MEDS: Insulin LISPRO 300 UNITS/3 ML VIAL SQ SCH ×4 (07:28→20:00)
[2020-03-22] MEDS: Furosemide 40 MG/4 ML VIAL IVP SCH ×3 (07:28→19:59)
[2020-03-22] MEDS: Prochlorperazine 10 MG/2 ML VIAL IVP PRN (07:28)
[2020-03-22] MEDS: Albumin 25% 25gram/100mL 25 GM/100 ML IV.SOLN IVPB SCH ×3 (07:28→19:59)
[2020-03-22] MEDS: acetaZOLAMIDE 250 MG TABLET PO SCH ×3 (11:21→19:58)
[2020-03-22] MEDS: Nystatin Cream 15 GM TUBE TP SCH ×2 (17:55→20:00)
[2020-03-22] MEDS ORDERED: *HR* Warfarin 4 MG TABLET PO ONE (18:00)
[2020-03-23] MEDS: *HR* LORazepam 0.5 MG TABLET PO PRN (00:12)
[2020-03-23] MEDS: Levalbuterol Neb 1.25 MG/3 ML IH SCH ×4 (03:19→21:40)
[2020-03-23 06:30] LABS: INR 2.6
[2020-03-23 06:36] LABS: Basophils # 0.1 K/mcL (0.0-0.2); Eosinophils # 0.2 K/mcL (0.0-0.6); Eosinophils % 2.5 %; Hematocrit 35.1 % (35.3-44.9); Hemoglobin 9.8 g/dL (11.5-15.4); Immature Granulocytes % 0.4 % (0-4); Lymphocytes # 0.9 K/mcL (0.6-4.6); Mean Corpuscular HGB Conc 27.9 g/dL (31.6-35.5); Mean Corpuscular Hemoglobin 26.7 pg (28.0-33.3); Mean Corpuscular Volume 95.6 fL (83.0-100.0); Mean Platelet Volume 10.5 fL (9.4-12.4); Monocytes # 0.5 K/mcL (0.0-1.3); Monocytes % 7.1 %; Neutrophils # 5.5 K/mcL (1.6-8.9); Platelet Count 136 K/mcL (140-400); Red Blood Count 3.67 M/mcL (3.82-4.97); Red Cell Distribution Width 18.3 % (11.5-14.5); White Blood Count 7.2 K/mcL (4.3-11.1)
[2020-03-23 06:54] LABS: BUN/Creatinine Ratio 28 (6-26); Blood Urea Nitrogen 19 mg/dL (8-23); Calcium 9.9 mg/dL (8.6-10.3); Carbon Dioxide 39 mEq/L (23-29); Chloride 93 mEq/L (98-107); Glucose 191 mg/dL (70-105); Osmolality,Calculated 295 (280-300); Potassium 3.5 mEq/L (3.5-5.1); Sodium 139 mEq/L (136-145); eGFR For African Americans > 60 (> 60); eGFR For Non-African Americans > 60 (> 60)
[2020-03-23 07:14] LABS: Anisocytosis 1+ (Not Present); Hypochromasia Present (Not Present); Platelet Estimate Normal (Normal)
[2020-03-23] MEDS: Sennosides/Docusate Sodium TABLET PO SCH (08:55)
[2020-03-23] MEDS: Metoprolol XL (24 HR) Succ 25 MG TAB.ER.24H PO SCH ×2 (08:55→19:39)
[2020-03-23] MEDS: Spironolactone 25 MG TABLET PO SCH (08:55)
[2020-03-23] MEDS: Albumin 25% 25gram/100mL 25 GM/100 ML IV.SOLN IVPB SCH (08:55)
[2020-03-23] MEDS: Nystatin Cream 15 GM TUBE TP SCH ×3 (08:55→19:39)
[2020-03-23] MEDS: Magnesium Oxide 400 MG TABLET PO SCH (08:55)
[2020-03-23] MEDS: acetaZOLAMIDE 250 MG TABLET PO SCH (08:55)
[2020-03-23] MEDS: Aspirin 81 MG TAB.CHEW PO SCH (08:55)
[2020-03-23] MEDS: Insulin LISPRO 300 UNITS/3 ML VIAL SQ SCH ×4 (08:56→19:41)
[2020-03-23] MEDS: lisinopriL 5 MG TABLET PO SCH (08:56)
[2020-03-23] MEDS: Furosemide 40 MG/4 ML VIAL IVP SCH ×2 (09:01→19:39)
[2020-03-23] MEDS: Acetaminophen 325 MG TABLET PO PRN (11:41)
[2020-03-23] MEDS ORDERED: *HR* Warfarin 3 MG TABLET PO ONE (18:00)
[2020-03-24] MEDS: Levalbuterol Neb 1.25 MG/3 ML IH SCH ×3 (03:21→15:48)
[2020-03-24 06:19] LABS: Prothrombin Time 34.1 Seconds (9.4-12.1)
[2020-03-24 06:20] LABS: BUN/Creatinine Ratio 31 (6-26); Blood Urea Nitrogen 21 mg/dL (8-23); Calcium 10.1 mg/dL (8.6-10.3); Carbon Dioxide 39 mEq/L (23-29); Chloride 94 mEq/L (98-107); Glucose 220 mg/dL (70-105); Osmolality,Calculated 300 (280-300); Potassium 3.4 mEq/L (3.5-5.1); Sodium 140 mEq/L (136-145); eGFR For African Americans > 60 (> 60); eGFR For Non-African Americans > 60 (> 60)
[2020-03-24 06:26] LABS: Hematocrit 35.4 % (35.3-44.9)
[2020-03-24 06:28] LABS: Hemoglobin 9.8 g/dL (11.5-15.4); Mean Corpuscular HGB Conc 27.7 g/dL (31.6-35.5); Mean Corpuscular Hemoglobin 26.4 pg (28.0-33.3); Mean Corpuscular Volume 95.4 fL (83.0-100.0); Mean Platelet Volume 10.8 fL (9.4-12.4); Platelet Count 155 K/mcL (140-400); Red Blood Count 3.71 M/mcL (3.82-4.97); Red Cell Distribution Width 18.9 % (11.5-14.5); White Blood Count 6.7 K/mcL (4.3-11.1)
[2020-03-24] MEDS: Insulin LISPRO 300 UNITS/3 ML VIAL SQ SCH ×3 (07:35→16:21)
[2020-03-24] MEDS: Nystatin Cream 15 GM TUBE TP SCH ×2 (09:45→16:21)
[2020-03-24] MEDS: Spironolactone 25 MG TABLET PO SCH (10:43)
[2020-03-24] MEDS: Aspirin 81 MG TAB.CHEW PO SCH (10:43)
[2020-03-24] MEDS: Furosemide 40 MG/4 ML VIAL IVP SCH ×2 (10:44→17:39)
[2020-03-24] MEDS: Sennosides/Docusate Sodium TABLET PO SCH (10:44)
[2020-03-24] MEDS: lisinopriL 5 MG TABLET PO SCH (10:44)
[2020-03-24] MEDS: Magnesium Oxide 400 MG TABLET PO SCH (10:44)
[2020-03-24] MEDS: Metoprolol XL (24 HR) Succ 25 MG TAB.ER.24H PO SCH ×2 (10:44→17:46)
[2020-03-24] MEDS ORDERED: *HR* Warfarin 1 MG TABLET PO ONE (18:00)
[2020-03-24 18:30] VITALS: BP 112/62
[2020-03-24 18:56] LABS: Adenovirus Not Detected (Not Detect); Bordetella Pertussis Not Detected (Not Detect); Chlamydophila pneumoniae Not Detected (Not Detect); Coronavirus 229E Not Detected (Not Detect); Coronavirus HKU1 Not Detected (Not Detect); Coronavirus NL63 Not Detected (Not Detect); Coronavirus OC43 Not Detected (Not Detect); Human Metapneumovirus Not Detected (Not Detect); Human Rhinovirus/Enterovirus Not Detected (Not Detect); Influenza A Subtype 2009 H1 Not Detected (Not Detect); Influenza B Not Detected (Not Detect); Mycoplasma pneumoniae Not Detected (Not Detect); Parainfluenza Virus 1 Not Detected (Not Detect); Parainfluenza Virus 2 Not Detected (Not Detect); Parainfluenza Virus 3 Not Detected (Not Detect); Parainfluenza Virus 4 Not Detected (Not Detect); Respiratory Syncytial Virus Not Detected (Not Detect); SARS-CoV-2 Not Detected (Not Detect)
== END 2020-03-24 20:02 | disposition hospice, inpatient (51) | DRG 871 ==
LOC: EMEROOARM 12:32 → ICNU 12:32 → SUATTDRO 17:32 → ICNU 17:59 → 2ANU 03-11 16:31
PROVIDERS: ADMIT Pediatrics; ATTEND Internal Medicine